=== PATIENT | female | born 1995 | race American Indian/Alaskan Native ===

== ENCOUNTER 2024-11-11 10:35 | Inpatient (IN) | payer OTHER, SELFPAY ==
--- NOTE | 2024-11-10 07:23 | ESHP_ITS ---
RE: KRISTYN KEARNEY : 1995 DATE OF ADMISSION: 11/11/2024 HISTORY OF PRESENT ILLNESS: This is a 29-year-old 1, para 0 with a due date of 11/03/2024 with intrauterine at 41 weeks 1 day on 11/11/2024 who presents for induction of labor for post dates. The patient's care was complicated by group B strep urinary tract infection at 20 weeks' gestation on 06/22/2024. She also had a group B strep urinary tract infection at 16 weeks. She reports occasional contractions. She denies any leaking or bleeding. She reports normal movement. ALLERGIES: NO KNOWN DRUG ALLERGIES. MEDICATIONS: 1. multivitamin 1 p.o. daily 2. Ferrous sulfate 325 mg one p.o. daily. 3. Aspirin 81 mg one p.o. daily. PAST SURGICAL HISTORY: Denies. FAMILY HISTORY: Denies. SOCIAL HISTORY: She is single. She denies any alcohol, drug use or smoking. PAST MEDICAL HISTORY: Iron deficiency anemia, group B strep urinary tract infection. Body mass index is 41. PHYSICAL EXAMINATION: Vital Signs: Blood pressure 114/66, heart rate 88, respirations 18, temperature 98.2, weight 245 pounds. HEENT: Oropharynx and sclerae are clear. Lungs: Clear to auscultation bilaterally. Heart: Regular rate and rhythm. Abdomen: Gravid term size consistent with estimated weight 8 pounds. Pelvic: See RN notes. Extremities: Nontender. Skin: No gross rashes or lesions. Neurologic: No focal deficit. ASSESSMENT AND PLAN: Intrauterine at 41 weeks 1 day , induction of labor. Anticipate spontaneous vaginal delivery. Informed consent was obtained. The patient made aware of the risks, complications, alternatives, and benefits of operative vaginal delivery and delivery. He agrees with these methods of delivery if indicated. DT: 17:02:10 TT: 18:10:00 Ref: [id number] - TID: [id number] MTDD
[2024-11-11] VITALS (11 sets, daily range): BP systolic 97–129; BP diastolic 55–75; PULSE 78–123; RESP 17–18; TEMP 36.6–37; O2SAT 98; BMI 41.0; BMI 43.9
[2024-11-11] MEDS: DINOPROSTONE 10 MG VAG.SUPP VAGINAL (11:57)
[2024-11-11 12:56] LABS: Basophils % (Auto) 0 % (0-2.5); Eosinophils % (Auto) 0 % (0-10); Hematocrit 37.2 % (36.0-46.0); Hemoglobin 12.7 g/dL (12.0-16.0); Immature Granulocytes % (Auto) 1 % (0-0); Immature Granulocytes Auto 0.07 Thou/mm3 (0.00-0.00); Lymphocytes # (Auto) 1.5 Thou/mm3 (1.0-4.8); Lymphocytes % (Auto) 14 % (10-50); Mean Corpuscular HGB Conc 34.1 g/dl (31.0-37.0); Mean Corpuscular Hemoglobin 27.8 pg (25.0-35.0); Mean Corpuscular Volume 81 fL (80-100); Monocytes # (Auto) 0.7 Thou/mm3 (0.0-0.8); Monocytes % (Auto) 6 % (0-12); Neutrophils # (Auto) 8.6 Thou/mm3 (1.8-7.7); Neutrophils % (Auto) 79 % (37-80); Nucleated Red Blood Cell % 0 /100 WBC (0); Platelet Count 372 Thou/mm3 (140-440); RDW Standard Deviation 42.5 fL (36.4-46.3); Red Blood Count 4.57 Miln/mm3 (4.00-5.20); White Blood Count 10.9 Thou/mm3 (3.6-11.0)
--- NOTE | 2024-11-11 13:06 | XR_ITS ---
Examination: Biophysical profile, ultrasound Date and time of exam: November 11, 2024 1255 hours INDICATIONS: Abnormal heart tracing today Technique: Multiple transabdominal sonographic images of the pelvis abdomen obtained. Attention is directed to the breathing movement, gross body movement, amniotic fluid volume and tone. Findings: Amniotic fluid index 8.9 cm Cardiac motion 140 BPM Total biophysical profile is 8 of 8. breathing movement is 2. Gross body movement is 2. tone is 2. Qualitative amniotic fluid volume is 2 Impression: Biophysical profile is 8 of 8.
--- NOTE | 2024-11-11 13:06 | XR_ITS ---
Examination: age Limited TECHNIQUE: Limited transabdominal sonographic images pelvis Exam date and time: November 11, 2024 1327 hours INDICATIONS: Induction today, unknown presentation. FINDINGS: Viable intrauterine gestation vertex presentation Cardiac motion 135 BPM IMPRESSION: Viable intrauterine gestation vertex presentation
[2024-11-11 13:28] LABS: Syphilis Nonreactive (Nonreactive)
--- NOTE | 2024-11-11 13:31 | PD.LDHP ---
Documentation for date of: 11/11/24 OB Labor/Induct. HPI History of Present Illness Comments: RE: KRISTYN KEARNEY : 1995 DATE OF ADMISSION: 11/11/2024 HISTORY OF PRESENT ILLNESS: This is a 29-year-old 1, para 0 with a due date of 11/03/2024 with intrauterine at 41 weeks 1 day on 11/11/2024 who presents for induction of labor for post dates. The patient's care was complicated by group B strep urinary tract infection at 20 weeks' gestation on 06/22/2024. She also had a group B strep urinary tract infection at 16 weeks. She reports occasional contractions. She denies any leaking or bleeding. She reports normal movement. ALLERGIES: NO KNOWN DRUG ALLERGIES. MEDICATIONS: 1. multivitamin 1 p.o. daily 2. Ferrous sulfate 325 mg one p.o. daily. 3. Aspirin 81 mg one p.o. daily. PAST SURGICAL HISTORY: Denies. FAMILY HISTORY: Denies. SOCIAL HISTORY: She is single. She denies any alcohol, drug use or smoking. PAST MEDICAL HISTORY: Iron deficiency anemia, group B strep urinary tract infection. Body mass index is 41. PHYSICAL EXAMINATION: Vital Signs: Blood pressure 114/66, heart rate 88, respirations 18, temperature 98.2, weight 245 pounds. HEENT: Oropharynx and sclerae are clear. Lungs: Clear to auscultation bilaterally. Heart: Regular rate and rhythm. Abdomen: Gravid term size consistent with estimated weight 8 pounds. Pelvic: See RN notes. Extremities: Nontender. Skin: No gross rashes or lesions. Neurologic: No focal deficit. ASSESSMENT AND PLAN: Intrauterine at 41 weeks 1 day , induction of labor. Anticipate spontaneous vaginal delivery. Informed consent was obtained. The patient made aware of the risks, complications, alternatives, and benefits of operative vaginal delivery and delivery. He agrees with these methods of delivery if indicated. Meds Home Medications and Allergies Home Medications ?Medication ?Instructions ?Recorded ?Confirmed ?Type aspirin 81 mg tablet,delayed mg 11/11/24 History release ferrous sulfate 325 mg (65 mg mg 11/11/24 History iron) tablet (FeroSul) Allergies Allergy/AdvReac Type Severity Reaction Status Date / Time NKA* Allergy Uncoded 11/11/24 10:47 OB Exam Physical Exam Vital signs: Pulse BP Pulse Ox 123 H 129/75 98 11/11/24 11:05 11/11/24 11:05 11/11/24 11:31 OB Results Labs 11/11/24 12:26 Labs: Short CBC 11/11/24 Range/Units 12:26 WBC 10.9 (3.6-11.0) Thou/mm3 Hgb 12.7 (12.0-16.0) g/dL Hct 37.2 (36.0-46.0) % Plt Count 372 (140-440) Thou/mm3
[2024-11-11 13:41] LABS: Amphetamine/Metham Scrn,Ur OB Negative (Negative); Benzoylecgonine Screen, Ur OB Negative (Negative); Opiate Screen,Urine OB Negative (Negative); THC Screen,Urine OB Negative (Negative)
[2024-11-11] MEDS: RINGERS LACTATED 1000 ML 1,000 ML 100 ML IV (15:53)
[2024-11-11] MEDS: Ampicillin Inj 2,000 MG in SODIUM CHLORIDE 0.9% (POP) 100 ML 200 MG IV (23:16)
[2024-11-12] VITALS (124 sets, daily range): BP systolic 98–147; BP diastolic 60–92; PULSE 62–112; RESP 16–18; TEMP 36.3–36.9; O2SAT 91–99
[2024-11-12] MEDS: Ampicillin Inj 1,000 MG in SODIUM CHLORIDE 0.9% (Popper) 50 ML 50 MG IV ×6 (03:11→23:30)
[2024-11-12] MEDS: MISOPROSTOL 50 mCg TABLET PO ×2 (03:11→08:12)
[2024-11-12] MEDS: RINGERS LACTATED 1000 ML 1,000 ML 100 ML IV ×3 (07:39→22:58)
--- NOTE | 2024-11-12 08:10 | PD.LDPN ---
Documentation for date of: 11/12/24 OB Labor Progress Note Pain Control Comments: None Pelvic Exam Dilation (cm): 2 Effacement (%): 70 station: -2 Amniotic membrane status: Ruptured Comments: Clear Contractions Contraction frequency: irregular Status status: Category l Assessment and Plan Comments: Induction of Labor with Cytotec on going. Ampicillin for GBS colonization.
[2024-11-12] MEDS: fentaNYL CIT INJ 50 mCg/ML AMP 2ML IVP ×5 (08:52→20:16)
[2024-11-12] MEDS: OXYTOCIN in NS 30 units 30 UNIT/500 ML BAG IV (13:00)
[2024-11-12] MEDS: ONDANSETRON INJ 2 MG/ML INJ 2 ML 4 MG IV (20:44)
[2024-11-12] MEDS: fentaNYL CIT INJ 50 mCg/ML AMP 2ML 100 MCG IV (22:11)
[2024-11-13] VITALS (110 sets, daily range): BP systolic 94–147; BP diastolic 51–84; PULSE 61–119; RESP 16–19; TEMP 36.3–37.5; O2SAT 89–99
[2024-11-13] MEDS: RINGERS LACTATED 1000 ML 1,000 ML 100 ML IV (02:15)
[2024-11-13] MEDS: Ampicillin Inj 1,000 MG in SODIUM CHLORIDE 0.9% (Popper) 50 ML 50 MG IV (03:31)
[2024-11-13] MEDS: CITRIC ACID/SODIUM CITR 15 ML UDC (BICITRA) 30 ML PO (04:00)
[2024-11-13] MEDS: FAMOTIDINE INJ 10 MG/ML VIAL 2 ML 20 MG IV (04:01)
[2024-11-13] MEDS: ceFAZolin/D5W 2 GM IV 2 GM/100 ML BAG IV (04:04)
--- NOTE | 2024-11-13 04:24 | PD.LDPN ---
Documentation for date of: 11/13/24 OB Labor Progress Note Pain Control Comments: Epidural Pelvic Exam Dilation (cm): 3.5 Effacement (%): 70 station: -2 Amniotic membrane status: Ruptured Contractions Contraction frequency: q3m Status status: Category l Assessment and Plan Comments: Failure to progress Delivery Informed consent obtained. Patient aware of the risks, complications, alternatives and benefits of the proposed procedure and she agrees.
--- NOTE | 2024-11-13 05:21 | PD.LDDS ---
DS: Providers Provider Date of admission: 11/11/24 10:35 Primary care physician: Physician No Primary/Family Admitting Provider: Corky Reed MD Attending Provider on Admission: Corky Reed MD Attending Provider on DC: Corky Reed MD Discharging Provider: Corky Reed MD DS: Diagnosis Problem List Completed Was Problem List Reviewed/Reconciled?: Yes Summary/Hosp Course Time Spent with Patient Time attestation: Total time spent providing and/or coordinating discharge services: Exam Vital Signs Temp Pulse Resp BP Pulse Ox 98.7 F 83 16 116/71 97 11/13/24 03:30 11/13/24 04:25 11/12/24 18:24 11/13/24 04:25 11/13/24 04:21 Discharge Plan Plan Patient Disposition: HOME (Self Care) Patient condition on transfer: Stable Prescriptions/Referrals Prescriptions/Med Rec: New hydrocodone-acetaminophen 5-325 mg tablet 1 tab PO Q6H MDD 4 PRN (Reason: pain) Qty: 20 0RF ibuprofen 600 mg tablet 600 mg PO Q6H PRN (Reason: pain) Qty: 20 0RF Discontinued hydrocodone-acetaminophen [[place]] 5-325 mg tablet 1 tab PO Q8H MDD 6 PRN (Reason: pain) Qty: 10 0RF aspirin 81 mg tablet,delayed release (DR/EC) Patient Comments: TAKE 1 TABLET BY MOUTH DAILY ferrous sulfate [FeroSul] 325 mg (65 mg iron) tablet Patient Comments: TAKE 1 TABLET BY MOUTH ONCE A DAY Referrals: No Primary/Family,Physician [Primary Care Provider] - Patient/Caregiver Discharge Instructions Discharge Activity: activity as tolerated Other Discharge Activity Instructions:: Follow up office 1 week. Education Materials: Understanding Blues, Nutrition While , C Section Dc Print Language: B[place] Stand Alone Forms: Kathya Award Info., Patient Portal Info Letter Discharge Order Discharge Orders: Discharge (Routine); Ordered 11/15/24 Ordered By: Corky Reed Planned Discharge Date 11/15/24
[2024-11-13] MEDS: MISOPROSTOL 200 mCg TABLET 800 MCG PR (05:33)
[2024-11-13 06:47] LABS: Gentamicin, Random < 0.5 mcg/mL (4.0-10.0)
[2024-11-13] MEDS: OXYTOCIN in NS 20 units 20 UNIT/1,000 ML BAG 125 UNIT IV ×3 (06:51→11:23)
--- NOTE | 2024-11-13 10:15 | PD.LDDELS ---
Data (Vo) Data Hx Section: No : 1 Para: 0 Term: 0 : 0 : 0 Delivery Data (Vo) Labor Data Stimulated/Augmented: Yes Induction: Yes Method: Oxytocin ROM Date: 11/11/24 ROM Time: 22:30 Rupture Type: SROM Amniotic Fluid: Clear Delivery Data EDC: 11/03/24 EDC calculated by:: LMP/early US confirmation Labor Onset Stage 1 Date: 11/11/24 Labor Onset Stage 1 Time: 18:00 Labor Onset Stage 2 Date: 11/13/24 Labor Onset Stage 2 Time: 04:27 Delivery Date: 11/13/24 Delivery Time: 04:50 Gestational age (weeks): 41 Gestational age (days): 3 Placenta Delivery Date: 11/13/24 Placenta Delivery Time: 04:51 Delivered by: Corky Reed Delivery nurse: Jackie Munguia Other staff at delivery: Nursery Nurse Other staff at delivery: 2nd Nurse Other staff at delivery: Neville Other staff at delivery: Other staff at delivery: Mitzy Tsai Other staff at delivery: Jennifer Narvaez Other staff at delivery: Jackie Munguia Other staff at delivery: Raulito Osei Delivery Method Delivery: Delivery Type: Primary Presentation: Vertex Position: OA Anesthesia Type Primary Anesthesia: Epidural Delivery Room Medications Intrapartum Medications: Antibiotics Placenta Placenta Delivery: Manual Placenta Cultures Obtained: No Placenta Sent for Examination: No Cord Sample: Cord Blood Obtained EBL Estimated blood loss (ml): 800 Umbilical Cord Nuchal Cord: None Additional Procedures None Complications Complications: Uterine atony Data (Vo) [place] Data Infant Gender: Female Weight Grams: 4300 1 Minute Total: 9 5 Minute Total: 9
[2024-11-13 11:11] LABS: Basophils % (Auto) 0 % (0-2.5); Eosinophils % (Auto) 0 % (0-10); Hematocrit 33.4 % (36.0-46.0); Hemoglobin 11.5 g/dL (12.0-16.0); Immature Granulocytes % (Auto) 1 % (0-0); Immature Granulocytes Auto 0.11 Thou/mm3 (0.00-0.00); Lymphocytes # (Auto) 0.7 Thou/mm3 (1.0-4.8); Lymphocytes % (Auto) 4 % (10-50); Mean Corpuscular HGB Conc 34.4 g/dl (31.0-37.0); Mean Corpuscular Hemoglobin 28.1 pg (25.0-35.0); Mean Corpuscular Volume 82 fL (80-100); Monocytes # (Auto) 0.5 Thou/mm3 (0.0-0.8); Monocytes % (Auto) 3 % (0-12); Neutrophils # (Auto) 15.5 Thou/mm3 (1.8-7.7); Neutrophils % (Auto) 92 % (37-80); Nucleated Red Blood Cell % 0 /100 WBC (0); Platelet Count 300 Thou/mm3 (140-440); RDW Standard Deviation 43.4 fL (36.4-46.3); Red Blood Count 4.09 Miln/mm3 (4.00-5.20); White Blood Count 16.8 Thou/mm3 (3.6-11.0)
[2024-11-13] MEDS: KETOROLAC INJ 30 MG/ML VIAL IVP (11:24)
[2024-11-13] MEDS: HYDROcodone/APAP 5/325 TABLET 2 TAB PO ×2 (12:51→19:12)
--- NOTE | 2024-11-13 13:22 | ESOP_ITS ---
RE: KRISTYN KEARNEY : 1995 Date of Surgery : 11/13/2024. PREOPERATIVE DIAGNOSES: 1. Intrauterine at 41 weeks and 3 days. 2. Induction of labor, failed induction. POSTOPERATIVE DIAGNOSES: 1. Intrauterine at 41 weeks and 3 days. 2. Induction of labor, failed induction. 3. Macrosomia. PROCEDURE PERFORMED: Primary low transverse section via Pfannenstiel skin incision. SURGEON: Corky Reed DO FOOD PROCESSING CHEMIST: COREY Duenas ANESTHESIA: Epidural. ANESTHESIOLOGIST: Harry Valenzuela CRNA ESTIMATED BLOOD LOSS: 800 mL. COMPLICATIONS: Uterine atony. FINDINGS: A live female infant, cephalic presentation, occiput posterior, clear amniotic fluid. Apgars, see RN notes. Weight 9 pounds, 8 ounces. Uterus initially atonic, but responded to uterotonics. Ovaries and fallopian tubes appear grossly within normal limits. No evidence of endometriosis. DESCRIPTION OF PROCEDURE: After proper informed consent was obtained and the patient made aware of the risks, complications, alternatives, and benefits of the proposed procedure, she was taken to the operating room where epidural anesthesia was found to be adequate. She was prepped and draped in the usual sterile fashion. A timeout was performed. A Pfannenstiel skin incision was made with a scalpel, carried through to the underlying layer of fascia with the Bovie. The fascia was nicked in the midline. The incision was extended bilaterally with the Bovie. The inferior aspect of the fascial incision was grasped with Josefa clamps and elevated. The underlying rectus muscle was dissected off with the Bovie. The rectus muscles were in the midline. The peritoneum was identified between 2 Gutiérrez clamps and entered sharply with the Metzenbaum scissors. The incision was extended superiorly and inferiorly with good visualization of the bladder. The bladder blade was then inserted. The vesicouterine peritoneum was incised transversely and the bladder flap was created digitally. The bladder blade was reinserted. The lower uterine segment was incised in a transverse fashion with the scalpel. The incision was extended bilaterally digitally. The infant's head was delivered. The mouth and nose were suctioned with bulb suction. Shoulder and body delivered atraumatically. The cord was clamped and cut. The was sent off to the waiting pediatric staff. Cord blood and gases were sent. The placenta was then removed manually. The uterus was exteriorized and cleared of all clots and debris. The uterus was initially atonic, but responded to uterotonics. The uterine incision was repaired with #1-0 chromic catgut suture in a running locking fashion. The second layer of the same suture was used to imbricate the first layer and obtained excellent hemostasis. The vesicouterine peritoneum was closed with 2-0 chromic catgut suture in a running fashion. The uterus was returned to the abdomen. The gutters were cleared of all clots and debris. The fundus was firm. There was no bleeding noted. The peritoneum was closed with 0 chromic catgut suture in a running fashion. The muscle was closed with 0 chromic catgut suture in a running fashion. The fascia was closed with 0 Vicryl beginning at each angle and ending in the center in a running fashion. Subcutaneous tissue was irrigated with normal saline solution and found to be hemostatic and closed with 2-0 chromic catgut suture in a running fashion. The skin was closed with 4-0 Monocryl. A Dermabond Prineo dressing was applied. A sterile pressure dressing was applied. She tolerated the procedure well. Counts were correct. I discussed with the patient the nature of her condition, the intraoperative findings, and expectation for recovery. All questions were answered. DT: 05:17:03 TT: 06:28:00 Ref: [id number] - TID: [id number] MTDD
[2024-11-13] MEDS: IBUPROFEN TAB 400 MG TABLET 800 MG PO (22:57)
[2024-11-14 04:10] VITALS: BP 107/70; PULSE 71; RESP 16; TEMP 36.5; O2SAT 98
[2024-11-14] MEDS: HYDROcodone/APAP 5/325 TABLET 2 TAB PO ×3 (05:19→19:04)
[2024-11-14 08:00] VITALS: BP 106/66; PULSE 68; RESP 16; TEMP 36.8; O2SAT 96
[2024-11-14] MEDS: DOCUSATE SOD 100 MG CAPSULE PO (08:43)
[2024-11-14] MEDS: IBUPROFEN TAB 400 MG TABLET 800 MG PO ×2 (08:43→17:17)
--- NOTE | 2024-11-14 08:53 | PC.CC ---
Patient is a 29 year-old female who presents to the hospital to deliver her , Micaela Matias. ASW received a consult for late to care. Anai DE LA GARZA made [id number] contact with patient. ASW introduced self, role, and reason for visit.?Patient appeared alert and oriented to self, location, and situation. Patient's significant other/father of baby was at bedside Deion Matias was at bedside the patient provided consent for him to remain in the room during initial assessment. Patient was pleasant and engaged in initial assessment. Patient reports she attempted to get a sooner care appointment but the doctor was booked. She attempted to be seen in [place] but the clinic was also booked. The patient reports she received care consistently upon establishing care. Patient denied past or current domestic violence and reports to feeling safe at home. Patient report she does not receive WIC, CashAid, or SNAP. Patient reports she has all the supplies she needs for her and plans to exclusively breast feed her . Per patient, her support system upon discharge include her mother Kasia Mills and JACKIE. SW provided psychoeducation regarding baby blues and Post- Depression, as well as counseling groups [facility]. SW provided community resources: Warm Line and Crisis Line. ASW provided update to HECTOR Estevez.
--- NOTE | 2024-11-14 11:54 | ESPR_ITS ---
RE: KRISTYN KEARNEY : 1995 DATE OF SERVICE: 11/14/2024 Postop day #1, the patient denies any problem or complaints. She is voiding. She is ambulating. She is tolerating diet. She is passing flatus. She denies any excessive vaginal bleeding. She denies any dizziness or lightheadedness. She denies any chest pain, palpitations, shortness of breath, or lower extremity pain. She denies any depression or anxiety. OBJECTIVE: Vital Signs: Blood pressure 106/66, heart rate 68, respirations 16, temperature 98.3, pulse oximetry is 96% on room air. Lungs: Clear to auscultation bilaterally. Heart: Regular rate and rhythm. Abdomen: Nondistended. Incision is clear and intact. Extremities: Nontender. LABORATORY DATA: Hemoglobin predelivery is 12.7 and post delivery is 11.5. ASSESSMENT: Postoperative day #1, status post delivery. PLAN: Advanced care. Encouraged ambulation. DCIV, consult, and possible discharge home tomorrow. DT: 11:03:07 TT: 11:52:00 Ref: [id number] - TID: [id number]
[2024-11-14 16:00] VITALS: BP 119/73; PULSE 79; RESP 18; TEMP 36.6; O2SAT 97
[2024-11-14] MEDS: Milk Of Magnesia Susp 30 ML UDC PO (17:17)
[2024-11-14] MEDS: SIMETHICONE 80 MG CHEW PO (17:17)
[2024-11-14 19:30] VITALS: BP 134/90; PULSE 78; RESP 16; TEMP 37.2; O2SAT 97
[2024-11-15] MEDS: HYDROcodone/APAP 5/325 TABLET 2 TAB PO (01:58)
[2024-11-15 03:15] VITALS: BP 141/86; PULSE 73; RESP 18; TEMP 36.7; O2SAT 97
[2024-11-15] MEDS: IBUPROFEN TAB 400 MG TABLET 800 MG PO (07:18)
[2024-11-15 07:32] VITALS: BP 124/84; PULSE 77; RESP 16; TEMP 36.5; O2SAT 98
--- NOTE | 2024-11-15 07:37 | ESPR_ITS ---
RE: KRISTYN KEARNEY : 1995 DATE OF SERVICE: 11/15/2024 S Patient denies any problem or complaints. She is voiding. She is ambulating. She is tolerating regular diet. She is passing flatus. She denies any excessive vaginal bleeding. She denies any dizziness or lightheadedness. She denies any chest pain, palpitations, shortness of breath or lower extremity pain. O: Vital Signs: Blood pressure 141/86, heart rate 73, respirations 18, temperature 98.1. Lungs: Clear to auscultation bilaterally. Heart: Regular rate and rhythm. Abdomen: Incision clear and intact. Extremities: Nontender. ASSESSMENT: Post op day #2 status post delivery. PLAN: Discharge home. Discharge instructions given. Follow up in the office in one week. DT: 06:49:32 TT: 07:26:00 Ref: [id number] - TID: [id number] [facility]
[2024-11-15] MEDS: DOCUSATE SOD 100 MG CAPSULE PO (07:48)
== END 2024-11-15 09:55 | disposition home or self-care (01) | DRG 787 ==
LOC: S4SX 11-12 11:27 → S4NX 11-13 04:36
PROVIDERS: Admitting Provider Specialist; Visit Provider Specialist
PROC: 10D00Z1 Extraction of Products of Conception, Low, Open Approach (ICD-10-PCS; CPT 59514; principal; 2024-11-13 04:15)
DX: O48.0 Post-term pregnancy (principal); O98.82 Other maternal infectious and parasitic diseases complicating childbirth; Z37.0 Single live birth; Z3A.41 41 weeks gestation of pregnancy; O99.824 Streptococcus B carrier state complicating childbirth; O62.2 Other uterine inertia; O36.63X0 Maternal care for excessive fetal growth, third trimester, not applicable or unspecified; O61.0 Failed medical induction of labor; Z87.440 Personal history of urinary (tract) infections
CPT/HCPCS: 36415; 59409; 76815; 80170; 80307; 85025; 86780; 86850; 86900; 86901; 94762; J0290; J0689; J1100; J1580; J1885; J2210; J2371; J2405; J2590; J2795; J3010; J3490; J7050; J7120; S0191; A9270